=== PATIENT | female | born 2000 | race Two or more races ===

== ENCOUNTER 2022-01-22 19:26 | Emergency (ER) | payer OTHER ==
[~2022-01-22] VITALS: Ht 175.3 cm; Wt 81.6 kg
== END 2022-01-22 22:02 | disposition home or self-care (01) ==
LOC: ER 19:26 → EMR PED 19:32
DX: S93.402A Sprain of unspecified ligament of left ankle, initial encounter (principal); W18.39XA Other fall on same level, initial encounter; Y93.67 Activity, basketball; Y92.9 Unspecified place or not applicable; Y99.9 Unspecified external cause status